=== PATIENT | male | born 1960 | race Caucasian/White ===

== ENCOUNTER 2020-12-27 09:28 | Emergency (ER) | payer OTHER ==
[~2020-12-27] VITALS: Ht 175.3 cm; Wt 64.0 kg
[2020-12-27] MEDS ORDERED: DRAMAMINE25 MG (09:42)
[2020-12-27] MEDS ORDERED: DICLOFENAC POTA50 MG PO (13:45)
[2020-12-27] MEDS ORDERED: ORPHENADRINE C100 MG PO (13:45)
== END 2020-12-27 14:24 | disposition home or self-care (01) ==
LOC: ER 09:28
DX: R42 Dizziness and giddiness (principal); M54.12 Radiculopathy, cervical region